=== PATIENT | female | born 1995 | race Hispanic/Latino ===

== ENCOUNTER 2021-03-13 18:27 | Day surgery (SDC) | payer BC ==
[2021-03-13 19:30] VITALS: BMI 22.4
[2021-03-13] MEDS ORDERED: hydrALAZINE 20 MG/ML VIAL SLOW IVP PRN (19:37)
== END 2021-03-13 21:35 | disposition home or self-care (01) ==
LOC: CSHLD/OP 18:27
PROVIDERS: ATTEND Advanced Practice Midwife
DX: O47.1 False labor at or after 37 completed weeks of gestation (principal); Z3A.37 37 weeks gestation of pregnancy
CPT/HCPCS: 99283

== ENCOUNTER 2021-03-20 06:52 | Inpatient (IN) | payer BC ==
[2021-03-20 07:08] VITALS: BMI 23.4
[2021-03-20] MEDS ORDERED: Ondansetron PF 4 MG/2 ML Vial IVP PRN ×2 (07:17→09:14)
[2021-03-20] MEDS ORDERED: Butorphanol Tartrate 1 MG/ML VIAL SLOW IVP PRN (07:17)
[2021-03-20] MEDS ORDERED: Lidocaine 1% (PF) 30 ML VIAL SC PRN (07:17)
[2021-03-20] MEDS ORDERED: Ibuprofen 800 MG TAB PO PRN (07:17)
[2021-03-20] MEDS ORDERED: HYDROcodone/Acetaminophen 5/325 mg Tablet PO PRN ×3 (07:17→09:14)
[2021-03-20] MEDS ORDERED: hydrALAZINE 20 MG/ML VIAL SLOW IVP PRN ×2 (07:17→09:14)
[2021-03-20] MEDS ORDERED: NS w/ Oxytocin 30 units 500 ML IVPB PRN (07:23)
[2021-03-20] MEDS ORDERED: Lactated Ringer's 1,000 ML IV SCH (07:30)
[2021-03-20 07:49] LABS: Hemoglobin 12.9 g/dL (12.0-15.5); Mean Corpuscular HGB CONC 33.4 g/dL (32.0-36.0); Mean Corpuscular Hemoglobin 28.4 pg (27.0-33.0); Mean Corpuscular Volume 84.8 fl (81.6-98.3); Mean Platelet Volume 12.2 fl (7.4-10.4); Platelet Count 198 10x3/uL (150-450); RBC Distribution Width 12.5 % (11.5-14.5); Red Blood Cell (RBC) Count 4.55 10x6/uL (3.90-5.03); White Blood Cell (WBC) Count 7.5 10x3/uL (3.5-10.5)
[2021-03-20 08:33] LABS: Hep B Surf Ag Non-Reactive S/CO (NonReactive); Syphilis Antibody Nonreactive (Nonreactive); Syphilis Antibody Index 0.02 S/CO (<1.00 Non-Reactive)
[2021-03-20 08:45] LABS: HBSAg Index 0.15 S/CO (0-0.99)
[2021-03-20] MEDS: NS w/ Oxytocin 30 units 500 ML ONE ×2 (09:05→10:38)
[2021-03-20] MEDS ORDERED: Adacel (T-DAP) 0.5 ML SYRINGE IM ONE (09:14)
[2021-03-20] MEDS ORDERED: Lanolin Ointment 7 GM TUBE TOP PRN (09:14)
[2021-03-20] MEDS ORDERED: Misoprostol 200 MCG TAB VAG PRN (09:14)
[2021-03-20] MEDS ORDERED: Bisacodyl 10 MG SUPP PR PRN (09:14)
[2021-03-20] MEDS ORDERED: Benzocaine-Menthol 82.5 ML CAN TOP PRN (09:14)
[2021-03-20] MEDS ORDERED: Milk Of Magnesia 30 ML UDCUP PO PRN (09:14)
[2021-03-20] MEDS ORDERED: Ibuprofen 800 MG TAB ONE (10:33)
[2021-03-20] MEDS ORDERED: NS w/ Oxytocin 30 units 500 ML IVPB SCH (10:45)
[2021-03-20] MEDS ORDERED: Boostrix 0.5 ML (Tdap) VIAL IM ONE (11:00)
[2021-03-20] MEDS ORDERED: Docusate Calcium (SURFAK) 240 MG CAP PO SCH (11:45)
[2021-03-20] MEDS ORDERED: Prenatal Vitamin 1 TAB PO SCH (12:00)
[2021-03-20] MEDS: Ibuprofen 800 MG TAB PO SCH ×2 (14:24→22:10)
[2021-03-20] MEDS: Ferrous Sulfate 325 MG TAB PO SCH (16:44)
[2021-03-20 21:49] LABS: SARS-CoV-2 PCR by NAA Not Detected (NotDetected)
[2021-03-20] MEDS: Docusate Calcium (SURFAK) 240 MG CAP PO SCH (22:11)
[2021-03-21] MEDS: Ibuprofen 800 MG TAB PO SCH ×3 (06:19→16:58)
[2021-03-21] MEDS: Ferrous Sulfate 325 MG TAB PO SCH (07:26)
[2021-03-21 07:36] VITALS: BP 112/73; TEMP 97.9
[2021-03-21] MEDS: Docusate Calcium (SURFAK) 240 MG CAP PO SCH (08:15)
[2021-03-21] MEDS ORDERED: Prenatal Vitamin 1 TAB PO SCH (09:00)
== END 2021-03-21 17:39 | disposition home or self-care (01) | DRG 807 ==
LOC: CSHLD/OP 06:52 → CSHLD 09:52 → CSHPP 12:45
PROVIDERS: ADMIT Obstetrics & Gynecology; ATTEND Obstetrics & Gynecology
PROC: 10E0XZZ Delivery of Products of Conception, External Approach (ICD-10-PCS; principal; 2021-03-20)
DX: O80 Encounter for full-term uncomplicated delivery (principal); Z37.0 Single live birth; Z3A.39 39 weeks gestation of pregnancy; Z20.822 Contact with and (suspected) exposure to COVID-19
CPT/HCPCS: 85027; 86780; 86850; 86900; 86901; 87340; 87635; 99285; J2001; J2590; U0003; U0005